=== PATIENT | female | born 1980 | race Caucasian/White ===

== ENCOUNTER 2017-01-20 21:03 | Inpatient (IN) | payer OTHER ==
--- NOTE | 2017-01-20 21:55 | HP ---
COWS - Scale Resting Pulse: 2= [place] 101-120 Sweatin=Flushed/Facial Moisture Restless Observation: 3= Extraneous Movement Pupil Size: 2= Moderately Dilated Bone or Joint Aches: 2= Severe Diffuse Aches Runny Nose/ Eye Tearin= Runny Nose/Eyes GI Upset > 30mins: 3= Vomiting/Diarrhea Tremor Observation: 2= Slight Tremor Visible Yawning Observation: 2= >3x During Session Anxiety or Irritability: 2=Irritable/Anxious Goose Flesh Skin: 0=Smooth Skin COWS Score: 22 CIWA Score - CIWA Score Nausea/Vomitin Muscle Tremors: 3 Anxiety: 3 Agitation: 3 Paroxysmal Sweats: 2 Orientation: 0-Oriented Tacttile Disturbances: 2-Mild Itch/Numbness/Burn Auditory Disturbances: 2-Mild Harshness/Frighten Visual Disturbances: 2-Mild Sensitivity Headache: 2-Mild CIWA-Ar Total Score: 22 Admission ROS BHS - HPI Chief Complaint: i need help tp stop using heroin and xanax Allergies/Adverse Reactions: Allergies Allergy/AdvReac Type Severity Reaction Status Date / Time No Known Allergies Allergy Verified 07/27/16 18:36 History of Present Illness: his 36 years old female seeking detox from heroin and xanax,multiple admissions in the past depression nicotine dependence no significant period of sobriety Exam Limitations: No Limitations - Ebola screening Have you traveled outside of the country in the last 21 days: No (N) Have you had contact with anyone from an Ebola affected area: No Do you have a fever: No - Review of Systems Constitutional: Chills, Loss of Appetite, Malaise, Night Sweats, Changes in sleep, Unintentional Wgt. Loss EENT: reports: Tearing, Nose Congestion Respiratory: reports: No Symptoms reported Cardiac: reports: Palpitations GI: reports: Diarrhea, Nausea, Poor Appetite, Vomiting : reports: No Symptoms Reported Musculoskeletal: reports: Back Pain, Joint Pain, Muscle Pain, Joint Stiffness Integumentary: reports: Dryness Neuro: reports: Headache, Tremors Endocrine: reports: No Symptoms Reported Hematology: reports: No Symptoms Reported Psychiatric: reports: Anxious, Depressed Patient History - Patient Medical History Hx Anemia: No Hx Asthma: No Hx Chronic Obstructive Pulmonary Disease (COPD): No Hx Cancer: No Hx Cardiac Disorders: No Hx Congestive Heart Failure: No Hx Hypertension: No Hx Hypercholesterolemia: No Hx Pacemaker: No HX Cerebrovascular Accident: No Hx Seizures: No Hx Dementia: No Hx Diabetes: No Hx Gastrointestinal Disorders: No Hx Liver Disease: No Hx Genitourinary Disorders: No Hx Sexually Transmitted Disorders: No Hx Renal Disease (ESRD): No Hx Thyroid Disease: No Hx Human Immunodeficiency Virus (HIV): No (11/09 negtive) Hx Hepatitis C: No Hx Depression: Yes (zoloft) Hx Suicide Attempt: No Hx Bipolar Disorder: No Hx Schizophrenia: No Other Medical History: no suicidal,no homicidal - Patient Surgical History Past Surgical History: Yes Hx Neurologic Surgery: No Hx Cataract Extraction: No Hx Cardiac Surgery: No Hx Lung Surgery: No Hx Breast Surgery: No Hx Breast Biopsy: No Hx Abdominal Surgery: Yes (removal of rt ovary and [id number]) Hx Appendectomy: No Hx Cholecystectomy: No Hx Genitourinary Surgery: No Hx Section: No Hx Orthopedic Surgery: No Hx Hysterectomy: No Anesthesia Reaction: No - PPD History Previous Implant?: Yes Documented Results: Negative w/o proof Date: 07/29/16 Results: no reading PPD to be Administered?: Yes - Reproductive History Patient is a Female of Child Bearing Age (11 -55 yrs old): Yes Last Menstrual Period: 12/24/16 Patient : No - Smoking Cessation Smoking history: Current every day smoker Have you smoked in the past 12 months: Yes Aproximately how many cigarettes per day: 6 Cigars Per Day: 0 Hx Chewing Tobacco Use: No Initiated information on smoking cessation: Yes 'Breaking Loose' booklet given: 01/20/17 - Substance & Tx. History Hx Alcohol Use: No Hx Substance Use: Yes Substance Use Type: Heroin, Opiates, Prescribed Hx Substance Use Treatment: Yes ([facility] 07/27/16 to 07/29/16 not completed) - Substances Abused Heroin Route: Injection Frequency: Daily Amount used: 15 bags Age of first use: 33 Date of Last Use: 01/20/17 Alprazolam (Xanax) Route: Oral Frequency: Daily Amount used: 8 mgs Age of first use: 30 Date of Last Use: 01/20/17 oxycodine Route: Oral Frequency: 1-2 times per week Age of first use: 21 Date of Last Use: 01/19/17 Family Disease History - Family Disease History Family Disease History: Heart Disease: Mother, [place]: Father (hiv,dsa,), Other: Father Admission Physical Exam [facility] - Vital Signs Vital Signs: Vital Signs Period Temp Pulse Resp BP Sys/Guillen Pulse Ox Last 24 Hr 97.2 F 101 20 109/67 - Physical General Appearance: Yes: Moderate Distress, Tremorous, Sweating, Anxious HEENTM: Yes: Hearing grossly Normal, Normal ENT Inspection, Normocephalic, Pharynx Normal, Nasal Congestion Respiratory: Yes: Lungs Clear, Normal Breath Sounds, No Respiratory Distress Neck: Yes: Within Normal Limits, Supple, Trachea in good position Breast: Yes: Breast Exam Deferred Cardiology: Yes: Tachycardia Abdominal: Yes: Within Normal Limits, Normal Bowel Sounds, Non Tender, Soft Genitourinary: Yes: Within Normal Limits Back: Yes: Muscle Spasm Musculoskeletal: Yes: full range of Motion, Back pain, Muscle Pain Extremities: Yes: Normal Range of Motion, Tremors Neurological: Yes: Within Normal Limits, special needs librarian II-XII NML intact, Fully Oriented, Alert Integumentary: Yes: Dry, Track Fox Lymphatic: Yes: Within Normal Limits - Diagnostic (1) Opioid dependence with withdrawal Current Visit: No Status: Acute (2) Nicotine dependence Current Visit: No Status: Chronic Qualifiers: Nicotine product type: cigarettes Substance use status: uncomplicated Qualified Code(s): F17.210 - Nicotine dependence, cigarettes, uncomplicated (3) Uncomplicated sedative, hypnotic, or anxiolytic withdrawal Current Visit: Yes Status: Acute (4) Depressed Current Visit: No Status: Chronic Qualifiers: Depression Type: dysthymia Qualified Code(s): F34.1 - Dysthymic disorder (5) Weight loss Current Visit: No Status: Suspected Cleared for Admission [facility] - Detox or Rehab [facility] Level of Care: Medically Managed Detox Regimen/Protocol: Methadone/Valium [facility] Breath Alcohol Content Breath Alcohol Content: 0 Vital Signs - Vital Signs Vital Signs Refused: No Temperature: 97.2 F Temperature Source: Oral Pulse Rate: 101 Respiratory Rate: 20 Blood Pressure: 109/67 BP Location: Left Arm - Height Height: 5 ft 3 in - Weight Weight: 122 lb Body Mass Index (BMI): 21.6 Urine Pregancy Test - Test Device Lot Number: [id number] Expiration Date: 07/23/18 - Control Horizontal Line in Upper Control Window?: Yes - Result Urine Test Results: Negative- NO Line Present Urine Drug Screen - Test Device Lot Number: [id number] Expiration Date: 08/22/18 - Control Is Test Valid: Yes - Results Drug Screen Negative: No Urine Drug Screen Results: OPI-Opiates, AMP-Amphetamines, BZO-Benzodiazepines, OXY-Oxycodone
[2017-01-20 22:24] VITALS: BMI 21.6
[2017-01-20] MEDS ORDERED: IBUPROFEN 400 MG TABLET (FP) PO PRN (22:29)
[2017-01-20] MEDS ORDERED: METHADONE HCL 10 MG TABLET (FOR DETOX USE ONLY) PO ONE ×2 (22:29→23:00)
[2017-01-20] MEDS ORDERED: diazePAM 5 MG TABLET PO ONE (22:29)
[2017-01-20] MEDS ORDERED: ACETAMINOPHEN 325 MG TABLET (FP) PO PRN (22:29)
[2017-01-20] MEDS ORDERED: guaiFENesin/D-METHORPHAN HB 10 ML UNIT-DOSE CUPS PO PRN (22:29)
[2017-01-20] MEDS ORDERED: diazePAM 5 MG TABLET PO PRN (22:29)
[2017-01-20] MEDS ORDERED: P-EPHED 60MG/TRIPROLIDI 2.5MG TABLET PO PRN (22:29)
[2017-01-20] MEDS ORDERED: MAG HYDROX/AL HYDROX/SIMETH 30 ML UNIT-DOSE CUP PO PRN (22:29)
[2017-01-20] MEDS ORDERED: NICOTINE POLACRILEX 2 MG GUM BUC PRN (22:29)
[2017-01-20] MEDS ORDERED: MAGNESIUM HYDROX 2400MG/30ML ORAL SUSPENSION 30 ML CUP PO PRN (22:29)
[2017-01-20] MEDS ORDERED: MENTHOL/PHENOL 1 EACH UD MM PRN (22:29)
[2017-01-20] MEDS ORDERED: hydrOXYzine PAMOATE 25 MG CAPSULE (FP) PO PRN (22:29)
[2017-01-20] MEDS ORDERED: LOPERAMIDE HCL 2 MG CAPSULE PO PRN (22:29)
[2017-01-20] MEDS ORDERED: MAGNESIUM CITRATE 300 ML BOTTLE PO PRN (22:29)
[2017-01-20] MEDS ORDERED: CYCLOBENZAPRINE HCL 10 MG TABLET (FP) PO PRN (22:41)
[2017-01-20] MEDS: diazePAM 5 MG TABLET PO SCH (23:43)
[2017-01-21] MEDS: diazePAM 5 MG TABLET PO SCH ×3 (07:14→22:26)
[2017-01-21] MEDS ORDERED: METHADONE HCL 10 MG TABLET (FOR DETOX USE ONLY) PO SCH (10:00)
[2017-01-21 10:02] LABS: ALBUMIN 3.2 g/dl (3.4-5.0); ANION GAP 8 (8-16); BILIRUBIN,TOTAL 0.3 mg/dL (0.2-1.0); CALCIUM 8.6 mg/dL (8.5-10.1); CO2 28 mmol/L (21-32); CREATININE 0.6 mg/dL (0.55-1.02); GLUCOSE,RANDOM 104 mg/dL (74-106); SGOT/AST 14 U/L (15-37); SGPT/ALT 16 U/L (12-78); TOT PROT 7.2 g/dl (6.4-8.2)
[2017-01-21 10:03] LABS: ALK PHOS 113 U/L (45-117)
[2017-01-21 10:05] LABS: MCH 28.6 pg (25.7-33.7); MCHC 33.2 g/dl (32.0-36.0); MEAN CELL VOLUME 86.3 fl (80-96); PLATELET COUNT 235 K/MM3 (134-434); RDW 13.8 % (11.6-15.6); WHITE BLOOD COUNT 7.3 K/mm3 (4.0-10.0)
--- NOTE | 2017-01-21 10:16 | EKG ---
Test Reason : Blood Pressure : / mmHG Vent. Rate : 078 BPM Atrial Rate : 078 BPM P-R Int : 156 ms QRS Dur : 084 ms QT Int : 410 ms P-R-T Axes : 056 064 -42 degrees QTc Int : 467 ms NORMAL SINUS RHYTHM POSSIBLE ANTERIOR INFARCT , AGE UNDETERMINED T WAVE ABNORMALITY, CONSIDER INFERIOR ISCHEMIA ABNORMAL ECG NO PREVIOUS ECGS AVAILABLE Confirmed by GUILLE BROWER MD ([id number]) on 01/21/2017 10:15:58 AM Referred By: Confirmed By:GUILLE BROWER MD
--- NOTE | 2017-01-21 10:22 | PN ---
[facility] CIWA - CIWA Score Nausea/Vomitin-No Nausea/No Vomiting Muscle Tremors: 4-Moderate,w/Arms Extend Anxiety: 4-Mod. Anxious/Guarded Agitation: 4-Moderately Restless Paroxysmal Sweats: 3 Orientation: 0-Oriented Tacttile Disturbances: 0-None Auditory Disturbances: 0-None Visual Disturbances: 0-None Headache: 1-Very Mild CIWA-Ar Total Score: 16 BHS COWS - Scale Resting Pulse: 0= [place] 80 or Below Sweatin=Flushed/Facial Moisture Restless Observation: 1= Difficult to Sit Still Pupil Size: 0= Normal to Room Light Bone or Joint Aches: 2= Severe Diffuse Aches Runny Nose/ Eye Tearin= Nasal Congestion GI Upset > 30mins: 1= Stomach Cramp Tremor Observation of Outstretched Hands: 2= Slight Tremor Visible Yawning Observation: 2= >3x During Session Anxiety or Irritability: 2=Irritable/Anxious Goose Flesh Skin: 3=Piloerection COWS Score: 16 S Progress Note (SOAP) Subjective: tired sweats shakes irritable interrupted sleep agitation Objective: 01/21/17 10:21 Vital Signs Temperature 97.1 F L 01/21/17 06:00 Pulse Rate 75 01/21/17 06:00 Respiratory Rate 16 01/21/17 06:00 Blood Pressure 90/55 01/21/17 06:00 O2 Sat by Pulse Oximetry (%) Laboratory Tests 01/21/17 01/21/17 07:00 07:00 WBC 7.3 RBC 4.41 Hgb 12.6 Hct 38.1 MCV 86.3 MCHC 33.2 RDW 13.8 Plt Count 235 MPV 8.0 Sodium 139 Potassium 4.2 Chloride 103 Carbon Dioxide 28 Anion Gap 8 BUN 8 D Creatinine 0.6 D Creat Clearance w eGFR > 60 Random Glucose 104 Calcium 8.6 Total Bilirubin 0.3 AST 14 L D ALT 16 D Alkaline Phosphatase 113 Total Protein 7.2 Albumin 3.2 L labs pending awake/alert ambulating no acute distress Assessment: 01/21/17 10:22 withdrawal sx Plan: continue detox increase fluids labs pending
[2017-01-21] MEDS: PRENATAL VITAMINS W/ FOLIC ACID TABLET (FP) PO SCH (10:43)
[2017-01-21] MEDS: NICOTINE 14 MG/24 HOURS TOPICAL PATCH TD SCH (10:43)
[2017-01-21] MEDS: cloNIDine HCL 0.1 MG TABLET PO SCH ×2 (10:43→22:25)
--- NOTE | 2017-01-21 13:17 | CONSULT ---
[id number] [facility] Identifying data: Another admission to [facility] for this 36 y/o female seeking detox treatment,on ,for heroin and sedative/anxiolytic dependence.Patient is ,a mother of three,domiciled and employed part- time. Substance Abuse History: - Smoking Cessation. Smoking history: Current every day smoker. Have you smoked in the past 12 months: Yes. Aproximately how many cigarettes per day: 6. Cigars Per Day: 0. Hx Chewing Tobacco Use: No. Initiated information on smoking cessation: Yes. 'Breaking Loose' booklet given : 01/20/17. - Substance & Tx. History. Hx Alcohol Use: No. Hx Substance Use: Yes. Substance Use Type: Heroin, Opiates, Prescribed. Hx Substance Use Treatment: Yes ([facility] 07/27/16 to 07/29/16 not completed). - Substances Abused. Heroin. Route: Injection. Frequency: Daily. Amount used: 15 bags. Age of first use: 33. Date of Last Use: 01/20/17. Alprazolam (Xanax). Route: Oral. Frequency: Daily. Amount used: 8 mgs. Age of first use: 30. Date of Last Use: 01/20/17. oxycodine. Route: Oral. Frequency: 1-2 times per week. Age of first use: 21. Date of Last Use: 01/19/17. Confirmed by patient. Medical History: History of withdrawal seizures (2014).Noted report of tubal ligation and right ovariectomy (2014). Psychiatric History: Patient denies history of psychiatric hospitalizations.Diagnosed with MDD and Anxiety Disorder.Prescribed zoloft 100 mg/day.No contact with psychiatric OPD care providers.Ms Serrato reportedly gets her scripts from her primary care physycian.No history of suicide attempts. Physical/Sexual Abuse/Trauma History: Patient denies. Additional Comment: Urine Drug Screen Results: OPI-Opiates, AMP-Amphetamines, BZO-Benzodiazepines, OXY-Oxycodone.Noted. Mental Status Exam - Mental Status Exam Alert and Oriented to: Time, Place, Person Cognitive Function: Good Patient Appearance: Well Groomed Mood: Hopeful, Euthymic Affect: Appropriate, Normal Range Patient Behavior: Fatigued, Cooperative Speech Pattern: Clear Voice Loudness: Normal Thought Process: Goal Oriented Thought Disorder: Not Present Hallucinations: Denies Suicidal Ideation: Denies Homicidal Ideation: Denies Insight/Judgement: Poor Sleep: Poorly, Difficulty falling asleep Appetite: Good Muscle strength/Tone: Normal Gait/Station: Normal Psychiatric Findings - Problem List (Amigo 1, 2,3) (1) Uncomplicated sedative, hypnotic, or anxiolytic withdrawal Current Visit: Yes Status: Acute (2) Opioid dependence with withdrawal Current Visit: Yes Status: Acute (3) Amphetamine abuse Current Visit: Yes Status: Acute (4) Substance induced mood disorder Current Visit: Yes Status: Acute (5) Insomnia Current Visit: Yes Status: Acute - Initial Treatment Plan Initial Treatment Plan: Psychoeducation.Sleep hygiene discussed with the patient.Medications : zoloft 100 mg po daily + ambien 10 mg po hs.Side effects/ benefits discussed with the patient.Made aware of risk of sexual dysfunction/ suicidal ideation with use of sertraline and parasomnias (zolpidem).Patient denies past adverse events from exposure to these medications.She agrees with this careplan.Observation.
[2017-01-21] MEDS: THIAMINE HCL 100 MG TABLET (FP) PO SCH (22:25)
[2017-01-21] MEDS: diphenhydrAMINE HCL 50 MG CAPSULE PO PRN (22:25)
[2017-01-22] MEDS: PRENATAL VITAMINS W/ FOLIC ACID TABLET (FP) PO SCH (10:47)
[2017-01-22] MEDS: METHADONE HCL 5 MG TABLET (FOR DETOX USE ONLY) PO SCH (10:47)
[2017-01-22] MEDS: cloNIDine HCL 0.1 MG TABLET PO SCH ×2 (10:47→22:12)
[2017-01-22] MEDS: diazePAM 5 MG TABLET PO SCH ×2 (10:47→22:12)
[2017-01-22] MEDS: SERTRALINE HCL 50 MG TABLET (FP) PO SCH (10:48)
[2017-01-22] MEDS: NICOTINE 14 MG/24 HOURS TOPICAL PATCH TD SCH (10:51)
--- NOTE | 2017-01-22 11:30 | PN ---
S CIWA - CIWA Score Nausea/Vomitin Muscle Tremors: 2 Anxiety: 2 Agitation: 2 Paroxysmal Sweats: 3 Orientation: 0-Oriented Tacttile Disturbances: 1-Very Mild Itch/Numbness Auditory Disturbances: 0-None Visual Disturbances: 0-None Headache: 0-None Present CIWA-Ar Total Score: 12 BHS COWS - Scale Resting Pulse: 0= [place] 80 or Below Sweatin=Flushed/Facial Moisture Restless Observation: 1= Difficult to Sit Still Pupil Size: 1= Pupils >than Normal Bone or Joint Aches: 1= Mild Discomfort Runny Nose/ Eye Tearin= Nasal Congestion GI Upset > 30mins: 1= Stomach Cramp Tremor Observation of Outstretched Hands: 1= Tremor [place], Not Seen Yawning Observation: 0= None Anxiety or Irritability: 1=Feels Anxious/Irritable Goose Flesh Skin: 0=Smooth Skin COWS Score: 9 BHS Progress Note (SOAP) Subjective: interrupted sleep, sweats Objective: 01/22/17 11:29 Vital Signs Temperature 98.8 F 01/22/17 09:53 Pulse Rate 69 01/22/17 09:53 Respiratory Rate 16 01/22/17 09:53 Blood Pressure 90/50 01/22/17 09:53 O2 Sat by Pulse Oximetry (%) Laboratory Tests 01/21/17 01/21/17 01/21/17 07:00 07:00 07:00 WBC 7.3 RBC 4.41 Hgb 12.6 Hct 38.1 MCV 86.3 MCHC 33.2 RDW 13.8 Plt Count 235 MPV 8.0 Sodium 139 Potassium 4.2 Chloride 103 Carbon Dioxide 28 Anion Gap 8 BUN 8 D Creatinine 0.6 D Creat Clearance w eGFR > 60 Random Glucose 104 Calcium 8.6 Total Bilirubin 0.3 AST 14 L D ALT 16 D Alkaline Phosphatase 113 Total Protein 7.2 Albumin 3.2 L RPR Titer Nonreactive pt aox3 in nad ambulating Assessment: 01/22/17 11:29 withdrawal sx's Plan: cont. detox increase fluids
[2017-01-22 18:10] LABS: URINE APPEARANCE CLEAR; URINE BILIRUBIN NEGATIVE (NEGATIVE); URINE BLOOD NEGATIVE (NEGATIVE); URINE COLOR LTYELLOW; URINE GLUCOSE (UA) NEGATIVE (NEGATIVE); URINE KETONE NEGATIVE (NEGATIVE); URINE LEUK ESTERASE NEGATIVE (NEGATIVE); URINE NITRITE NEGATIVE (NEGATIVE); URINE PROTEIN NEGATIVE (NEGATIVE); URINE UROBILINOGEN NEGATIVE E.U./dl (0.2-1.0)
[2017-01-22] MEDS: diphenhydrAMINE HCL 50 MG CAPSULE PO PRN (22:12)
[2017-01-22] MEDS: THIAMINE HCL 100 MG TABLET (FP) PO SCH (22:12)
[2017-01-23 06:53] VITALS: BP 88/51; PULSE 66; TEMP 97.9
--- NOTE | 2017-01-23 11:19 | PN ---
S Progress Note (SOAP) Subjective: tired sweats interrupted sleep Objective: 01/23/17 11:17 Vital Signs Temperature 97.9 F 01/23/17 06:52 Pulse Rate 66 01/23/17 06:52 Respiratory Rate 16 01/23/17 06:52 Blood Pressure 88/51 01/23/17 06:52 O2 Sat by Pulse Oximetry (%) awake/alert ambulating no acute distress monitor BP encouraged to increase fluids. Assessment: 01/23/17 11:18 withdrawal sx Plan: continue detox increase fluids flexiril, clonidine, visitirl discontinued
[2017-01-23] MEDS: SERTRALINE HCL 50 MG TABLET (FP) PO SCH (12:15)
[2017-01-23] MEDS: PRENATAL VITAMINS W/ FOLIC ACID TABLET (FP) PO SCH (12:15)
[2017-01-23] MEDS: METHADONE HCL 5 MG TABLET (FOR DETOX USE ONLY) PO SCH (12:15)
[2017-01-23] MEDS: diazePAM 5 MG TABLET PO SCH (12:15)
[2017-01-23] MEDS: NICOTINE 14 MG/24 HOURS TOPICAL PATCH TD SCH (12:15)
--- NOTE | 2017-01-23 13:43 | DS ---
[facility] Detox Discharge Summary Admission Date: 01/20/17 - Physical Exam Results Vital Signs: Vital Signs Temperature 97.9 F 01/23/17 06:52 Pulse Rate 66 01/23/17 06:52 Respiratory Rate 16 01/23/17 06:52 Blood Pressure 88/51 01/23/17 06:52 O2 Sat by Pulse Oximetry (%) - Medication Discharge Medications: Ambulatory Orders Ethinyl Estradiol/Drospirenone [Ocella 3 mg-0.03 mg Tablet] 1 each PO DAILY 05/08 Sertraline HCl [Zoloft -] 100 mg PO HS 01/20/17 Sertraline HCl [Zoloft] 100 mg PO DAILY #30 tablet 01/21/17
[2017-01-24] MEDS ORDERED: METHADONE HCL 10 MG TABLET (FOR DETOX USE ONLY) PO SCH (10:00)
[2017-01-24] MEDS ORDERED: diazePAM 5 MG TABLET PO SCH (10:00)
[2017-01-25] MEDS ORDERED: METHADONE HCL 5 MG TABLET (FOR DETOX USE ONLY) PO SCH (06:00)
== END 2017-01-23 13:25 | disposition left against medical advice (07) | DRG 770 ==
LOC: YASAS 21:03 → Y6N 22:10
PROVIDERS: ADMIT Internal Medicine; ATTEND Internal Medicine
PROC: HZ2ZZZZ Detoxification Services for Substance Abuse Treatment (ICD-10-PCS; principal; 2017-01-20)
DX: F11.23 Opioid dependence with withdrawal (principal); F13.230 Sedative, hypnotic or anxiolytic dependence with withdrawal, uncomplicated; F15.10 Other stimulant abuse, uncomplicated; F17.210 Nicotine dependence, cigarettes, uncomplicated; F19.24 Other psychoactive substance dependence with psychoactive substance-induced mood disorder; F34.1 Dysthymic disorder; R00.0 Tachycardia, unspecified; G47.00 Insomnia, unspecified; Z87.898 Personal history of other specified conditions
CPT/HCPCS: 36415; 80053; 81003; 85027; 86593; 93005; 93010